=== PATIENT | male | born 1975 | race Caucasian/White ===

== ENCOUNTER 2020-05-23 08:40 | Outpatient (CLI) | payer OTHER, SELFPAY ==
[2020-05-23 09:33] LABS: Basophils Percent Auto 0.5 % (0.2-1.2); Eosinophils Absolute Auto 0.1 K/mm3 (0-0.3); Eosinophils Percent Auto 1.7 % (0-4.4); Hematocrit 45.3 % (42.0-52.0); Hemoglobin 15.3 g/dL (14.0-18.0); Immature Granulocyte Absolute 0.02 K/mm3 (0.00-0.031); Immature Granulocyte Percent A 0.5 % (0-0.5); Lymphocytes Absolute Auto 1.58 K/mm3 (0.9-3.2); Lymphocytes Percent Auto 37.9 % (18.3-44.2); Mean Corpuscular HGB Conc 33.8 g/dl (32-36); Mean Platelet Volume 9.3 fl (7.4-10.4); Monocytes Absolute Auto 0.3 K/mm3 (0.1-0.6); Monocytes Percent Auto 6.5 % (2.6-8.5); Neutrophils Absolute Auto 2.2 K/mm3 (1.3-6.7); Neutrophils Percent Auto 52.9 % (45.5-73.1); Platelet Count Result 165 k/mm3 (150-375); Red Blood Count 5.27 M/mm3 (4.6-6.20); Red Cell Distribution Width 13.1 % (11.5-14.5); White Blood Count 4.2 K/mm3 (4.5-10.0)
[2020-05-23 09:37] LABS: Add Urine Microscopic? NO; Appearance Urine Clear (Clear); Bilirubin Urine Negative (Negative); Blood Urine Negative (Negative); Color Urine Straw (Yellow); Glucose Urine UA Negative (Negative); Ketones Urine Negative (Negative); Leukocyte Esterase Ur Negative LEU/UL (Negative); Nitrate Urine Negative (Negative); Protein Urine Negative (Negative); Specific Grav Ur 1.008 (1.001-1.035); Urobilinogen Urine Negative mg/dL (<2.0)
[2020-05-23 09:42] LABS: Hemoglobin A1C 7.5 % (<5.7)
[2020-05-23 09:45] LABS: Cholesterol 173 mg/dL (0-200); HDL Direct 39 mg/dL; Triglycerides 191 mg/dL (<150)
[2020-05-23 09:48] LABS: Alanine Aminotransferase 53 U/L (4-50); Albumin Level 4.6 g/dL (3.5-5.1); Alkaline Phosphatase 71 U/L (38-126); Anion Gap 8 mmol/L (8-16); Aspartate Amino Transferase 41 U/L (17-59); Bilirubin,Total 0.6 mg/dL (0.2-1.3); Blood Urea Nitrogen 16 mg/dL (9-20); Calcium 9.3 mg/dL (8.4-10.2); Carbon Dioxide 28 mmol/L (22-30); Chloride 102 mmol/L (98-107); Estimated Glomerular Filt Rate > 60; Glucose 132 mg/dL (75-110); Potassium 4.3 mmol/L (3.4-5.0); Sodium 138 mmol/L (137-145); Uric Acid 5.7 mg/dL (3.5-8.5)
[2020-05-23 09:59] LABS: LDL Cholesterol Direct 88 mg/dL
[2020-05-23 09:59] LABS: Creatinine Urine 60.5 mg/dL
[2020-05-23 10:13] LABS: MALB Creatinine Ratio < 9.9 mg/g (0-30); Microalbumin Urine Random < 6.0 mg/L (0-16.7)
[2020-05-23 10:16] LABS: Vitamin D 25 Hydroxy 36.3 ng/mL
[2020-05-23 10:54] LABS: Folic Acid 11.5 ng/mL (2.76->20)
[2020-05-27 05:18] LABS: Insulin Level Total 13.3 uIU/mL (<=19.6)
[2020-05-27 10:02] LABS: T3 Reverse 19 ng/dL (8-25)
[2020-05-27 13:48] LABS: DHEA-Sulfate 79 mcg/dL (70-495)
[2020-05-28 10:19] LABS: Testosterone Free 56.8 pg/mL (35.0-155.0); Testosterone Total 400 ng/dL (250-1100)
[2020-05-28 22:01] LABS: Triiodothyronine T3 Free 3.7 pg/mL (2.3-4.2)
== END 2020-05-23 08:41 | disposition home or self-care (01) ==
PROVIDERS: PCP Family Medicine; Visit Provider Family Medicine
DX: E78.5 Hyperlipidemia, unspecified (principal); E11.9 Type 2 diabetes mellitus without complications; G47.10 Hypersomnia, unspecified; G47.30 Sleep apnea, unspecified; I10 Essential (primary) hypertension; R63.5 Abnormal weight gain; Z79.899 Other long term (current) drug therapy; N99.89 Other postprocedural complications and disorders of genitourinary system; G25.81 Restless legs syndrome
CPT/HCPCS: 36415; 80053; 80061; 81003; 82043; 82306; 82607; 82627; 82746; 83036; 83525; 84402; 84403; 84439; 84443; 84481; 84482; 84550; 85025

== ENCOUNTER 2020-08-23 15:27 | Emergency (ER) | payer OTHER, SELFPAY ==
[2020-08-23 15:30] VITALS: BP 169/96; PULSE 88; RESP 16; TEMP 36.6; O2SAT 98
[2020-08-23] MEDS: HYDROcodone/acetaminophen (*CRX) 7.5-325 MG TABLET 1 TAB PO (16:45)
[2020-08-23 16:46] VITALS: BP 177/101; PULSE 77; RESP 14; O2SAT 99
[2020-08-23] MEDS: diazePAM (*CRX) 5 MG TABLET PO (16:49)
--- NOTE | 2020-08-23 17:14 | ED.GENADULT ---
HPI - General Adult General Chief complaint: Extremity Problem,Nontraumatic Stated complaint: CHRONIC LBP Time Seen by Provider: 08/23/20 15:56 Source: patient and family Mode of arrival: ambulatory Limitations: no limitations History of Present Illness HPI narrative: Patient is a 45-year-old male who presents with right lower back pain rating down the right lower extremity been present for 2 weeks was seen at an outside facility had x-rays which she states showed degenerative disc disease patient was given Flexeril and anti-inflammatory which she has been taking with no improvement notes that he retweaked his back again since and has had increasing pain patient denies any direct injury or trauma or other complaints when on arrival appears uncomfortable but in no distress Related Data Allergies Allergy/AdvReac Type Severity Reaction Status Date / Time metformin Allergy Intermediate diarrhea, Verified 08/23/20 15:38 vomiting Penicillins Allergy Mild Rash Verified 08/23/20 15:38 Review of Systems Review of Systems: All systems reviewed & are unremarkable except as noted in HPI and below PMFSH Past Medical History Medical History (Updated 08/23/20 @ 17:34 by Julius Zhu PA-C) Essential (primary) hypertension Hyperlipidemia, unspecified Pyloric stenosis Sleep apnea in adult Type 2 diabetes mellitus without complication, without long-term current use of insulin Surgical History Surgical History H/O hernia repair Hx of tonsillectomy S/P operative procedure on wrist Family History Family History Father Hypertension Grandparent Diabetes mellitus Other Acute myocardial infarction Social History Social History Smoking status: Never smoker Second hand tobacco smoke exposure: No Alcohol intake: never Gender identity (if verbalized by the patient): Male Exam Narrative: Exam Narrative: GENERAL: Well-appearing, well-nourished, and in no acute distress. HEAD: Normocephalic, atraumatic. EYES: PERRLA and EOMI. ENT: Nares clear, no rhinorrhea or epistaxis. Mucous membranes moist. CHEST: Clear to auscultation. No respiratory distress. No wheezes rales or rhonchi HEART: Regular rate and rhythm. No murmur heard. EXTREMITIES: Normal range of motion. No edema. Right SI joint tenderness no midline tenderness SKIN: Warm, dry, no rash. NEURO: No focal deficits. Alert and oriented x3. Cranial nerves II through XII grossly intact PSYCH: Normal mood and affect. Course Course Emergency Course: Patient in the room in no distress given medications advised to follow with primary care and the specialist he is planning to follow with felt appropriate for outpatient reevaluation Vital Signs Vital signs: Vital Signs Temperature 97.9 F 08/23/20 15:30 Pulse Rate 88 08/23/20 15:30 Respiratory Rate 16 08/23/20 15:30 Blood Pressure 169/96 H 08/23/20 15:30 Pulse Oximetry 98 08/23/20 15:30 Temperature 97.9 F 08/23/20 15:30 Pulse Rate 77 08/23/20 16:46 Respiratory Rate 14 08/23/20 16:46 Blood Pressure 177/101 H 08/23/20 16:46 Pulse Oximetry 99 08/23/20 16:46 Medical Decision Making MDM Narrative Medical decision making narrative: Patients pain is positional in nature and localized to back without signs of cord compression or cauda equina based on neurological exam, skeletal exam and history. No fever or other significant factors to suggest osteomyelitis or spinal epidural abscess. No symptoms or signs to suggest pain is referred from abdominal or / cardiopulmonary sources. No pulsatile masses noted on exam. Patient ambulates with steady gait and is stable for outpatient management given case findings. Vital Signs Vital Signs: Vital Signs Temperature 97.9 F 08/23/20 15:30 Pulse Rate 88 08/23/20 15:30
[2020-08-23] MEDS: LIDOCAINE 5% PATCH 1 PATCH TRANSDERM (17:29)
[2020-08-23 18:08] VITALS: BP 164/92; PULSE 80; RESP 15; O2SAT 99
== END 2020-08-23 18:10 | disposition home or self-care (01) ==
PROVIDERS: Emergency Provider Emergency Medicine; PCP Family Medicine
DX: M54.5 Low back pain (principal); I10 Essential (primary) hypertension; E78.5 Hyperlipidemia, unspecified; E11.9 Type 2 diabetes mellitus without complications; Z79.4 Long term (current) use of insulin; G47.30 Sleep apnea, unspecified
CPT/HCPCS: 99283; A9270

== ENCOUNTER 2020-09-03 13:25 | Outpatient (CLI) | payer OTHER, SELFPAY ==
--- NOTE | ~2020-09-03 | MR_ITS ---
EXAMINATION: MR lumbar spine wo con DATE: 09/03/2020 14:23 INDICATION: Low back pain. Lumbar radiculopathy. TECHNIQUE: Magnetic resonance imaging (MRI) of the lumbar spine was performed without intravenous con trast. Sequences included sagittal T2-weighted FSE, sagittal T2-weighted FS FSE, sagittal T1-weighted FSE, and axial T2-weighted FSE. COMPARISON: None FINDINGS: There is 5 degrees levocurvature of lumbar spine. Vertebral body heights are normal. There is mildly decreased disc height at L2-L3, L3-L4, and L5-S1 and moderately decreased disc height at L4 -L5. The distal spinal cord signal intensity is normal. The conus medullaris is at L1. The following disc levels are specifically discussed: L1-L2: The disc does not extend beyond the endplate margin. There is mild bilateral facet joint osteo arthritis. There is no neural foraminal stenosis. There is no central canal stenosis. L2-L3: The disc is bulging and has an annular fissure. There is mild bilateral facet joint osteoarthr itis. There is mild right and moderate left neural foraminal stenosis. There is mild central canal st enosis. L3-L4: The disc is bulging and has an annular fissure. There is mild right and moderate left facet lexie int osteoarthritis. There is mild bilateral neural foraminal stenosis. There is mild central canal st enosis. L4-L5: The disc is bulging with superimposed right subarticular extrusion with mass effect on right L 5 nerve root in right lateral recess. There is moderate bilateral facet joint osteoarthritis. There i s moderate bilateral neural foraminal stenosis. There is mild central canal stenosis. L5-S1: The disc is bulging and has an annular fissure. There is mild bilateral facet joint osteoarthr itis. There is mild bilateral neural foraminal stenosis. There is mild central canal stenosis. IMPRESSION: 1. Moderate lumbar spondylosis. Of note, an extrusion at L4-L5 exerts mass effect on right L5 nerve r oot. Reviewed, dictated and finalized at location A. STOCK OPERATOR IMPRESSION: 1. Moderate lumbar spondylosis. Of note, an extrusion at L4-L5 exerts mass effe ct on right L5 nerve root.
== END 2020-09-03 13:26 | disposition home or self-care (01) ==
PROVIDERS: PCP Family Medicine; Visit Provider Family Medicine
DX: M47.27 Other spondylosis with radiculopathy, lumbosacral region (principal); M48.07 Spinal stenosis, lumbosacral region
CPT/HCPCS: 72148

== ENCOUNTER 2020-09-08 08:52 | Outpatient (CLI) | payer OTHER, SELFPAY ==
[2020-09-08 17:14] LABS: Basophils Percent Auto 0.5 % (0.2-1.2); Eosinophils Absolute Auto 0.1 K/mm3 (0-0.3); Eosinophils Percent Auto 1.6 % (0-4.4); Hematocrit 45.4 % (42.0-52.0); Hemoglobin 14.6 g/dL (14.0-18.0); Immature Granulocyte Absolute 0.01 K/mm3 (0.00-0.031); Immature Granulocyte Percent A 0.2 % (0-0.5); Lymphocytes Absolute Auto 1.63 K/mm3 (0.9-3.2); Lymphocytes Percent Auto 36.9 % (18.3-44.2); Mean Corpuscular HGB Conc 32.2 g/dl (32-36); Mean Corpuscular Volume 90.3 fl (80-100); Monocytes Absolute Auto 0.3 K/mm3 (0.1-0.6); Monocytes Percent Auto 6.1 % (2.6-8.5); Neutrophils Absolute Auto 2.4 K/mm3 (1.3-6.7); Neutrophils Percent Auto 54.7 % (45.5-73.1); Platelet Count Result 177 k/mm3 (150-375); Red Blood Count 5.03 M/mm3 (4.6-6.20); Red Cell Distribution Width 13.1 % (11.5-14.5); White Blood Count 4.4 K/mm3 (4.5-10.0)
[2020-09-08 17:34] LABS: Alanine Aminotransferase 37 U/L (4-50); Albumin Level 4.2 g/dL (3.5-5.1); Alkaline Phosphatase 66 U/L (38-126); Anion Gap 8 mmol/L (8-16); Aspartate Amino Transferase 30 U/L (17-59); Bilirubin,Total 0.7 mg/dL (0.2-1.3); Blood Urea Nitrogen 24 mg/dL (9-20); Calcium 9.2 mg/dL (8.4-10.2); Carbon Dioxide 27 mmol/L (22-30); Chloride 105 mmol/L (98-107); Cholesterol 138 mg/dL (0-200); Estimated Glomerular Filt Rate > 60; Glucose 100 mg/dL (75-110); HDL Direct 39 mg/dL; Potassium 4.2 mmol/L (3.4-5.0); Sodium 140 mmol/L (137-145); Triglycerides 126 mg/dL (<150)
[2020-09-08 17:45] LABS: LDL Cholesterol Direct 71 mg/dL
[2020-09-08 17:49] LABS: Hemoglobin A1C 5.2 % (<5.7)
[2020-09-11 03:51] LABS: Insulin Level Total 7.7 uIU/mL (<=19.6)
[2020-09-13 14:13] LABS: C-Peptide 1.88 ng/mL (0.80-3.85)
== END 2020-09-08 08:53 | disposition home or self-care (01) ==
LOC: ANHBWCLAB 08:58
PROVIDERS: PCP Family Medicine; Visit Provider Family Medicine
DX: E78.5 Hyperlipidemia, unspecified (principal); Z51.81 Encounter for therapeutic drug level monitoring; E11.9 Type 2 diabetes mellitus without complications; Z79.899 Other long term (current) drug therapy; I10 Essential (primary) hypertension; R89.9 Unspecified abnormal finding in specimens from other organs, systems and tissues; Z00.00 Encounter for general adult medical examination without abnormal findings
CPT/HCPCS: 36415; 80053; 80061; 83036; 83525; 84681; 85025

== ENCOUNTER 2020-11-24 13:33 | Outpatient (CLI) | payer OTHER, SELFPAY ==
--- NOTE | ~2020-11-24 | XR_ITS ---
XR chest 2V DATE: 11/24/2020 13:56 INDICATION: Shortness of breath. History of hypertension. TECHNIQUE: PA and lateral views COMPARISON: 10/01/2018 two-view chest FINDINGS: Normal heart size. No hilar or mediastinal enlargement. No pulmonary infiltrate or consolid ation, pleural effusion or pulmonary vascular congestion or pneumothorax. Minimal dextroscoliosis of the thoracic spine. IMPRESSION: No active cardiopulmonary disease Reviewed, dictated and finalized at location B. TAL PHOTOGRAPHER
--- NOTE | 2020-11-27 12:59 | WPDPFTINT ---
PFT Interpretation This is a pulmonary function test with pre and post-bronchodilator spirometry, plethysmography and diffusing capacity. The test was performed and results interpreted in accordance with the 2019 and 2005 ATS/ERS Task Force guidelines respectively using the Serge/Polchika reference equations. Findings: Spirometry: The Contour of the inspiratory and expiratory flow tracing are normal. The pre bronchodilator FVC is 3.69 L, 73% predicted. The pre bronchodilator FEV1 is 3.01 L, 79% predicted. The FEV1: FVC ratio was 82%. The post bronchodilator FVC is 3.83 L, representing a 4% increase. The post bronchodilator FEV1 is 3.11 L, representing a 3% increase. Plethysmography: The total lung capacity is 5.36 L, 77% predicted. The functional residual capacity is 2.08 L, 62% predicted. The residual volume is 1.63 L, 78% predicted. Diffusing capacity: The absolute diffusion capacity is 26.5, 87% predicted. The diffusing capacity corrected for alveolar volume is 5.61, 131% predicted. In comparison to previous study on 10/01/2018 in which the patient had spirometry without any bronchodilator the FVC is unchanged from 3.78 L to 3.69 L. The FEV1 is unchanged from 3.03 L to 3.01 L. The total lung capacity is he the unchanged from 5.82 L to 5.36 L. The functional residual capacity is decreased from 3.01 L to 2.08 L. The residual volume is decreased from 2.04 L to 1.63 L. The absolute diffusing capacity is unchanged from 27.4 to 26.5. The diffusing capacity corrected for alveolar volume is unchanged from 5.69 to 5.61. Impression: There is a mild restrictive ventilatory abnormality with a normal FEV1. The spirometry is normal without evidence of an obstructive abnormality. There is no significant improvement after inhaling a single dose of albuterol. The diffusing capacity is normal. When compared to previous pulmonary function testing on 10/01/2018 there has been a greater than anticipated time dependent decrease in functional residual capacity and residual volume with an unchanged total lung capacity. Clinical correlation is recommended. There are no prior studies for comparison
== END 2020-11-24 13:34 | disposition home or self-care (01) ==
PROVIDERS: PCP Family Medicine; Visit Provider Internal Medicine Critical Care Medicine
DX: R06.02 Shortness of breath (principal)
CPT/HCPCS: 71046; 94060; 94726; 94729

== ENCOUNTER 2021-03-23 09:35 | Outpatient (CLI) | payer OTHER, SELFPAY ==
--- NOTE | 2021-04-23 09:56 | WPDHOMESLEEP ---
Sleep Study - Home Unattended Date of Study: 03/23/21 Ordering Provider: Kailey Ewing MD Interpreting Provider: Kailey Ewing MD Home Sleep Study Type: Luis M MIJARES Height: 1.78 m Weight: 99.79 kg Body Mass Index: 31.5 Neck Circumference (inches): 17.50 [place]: 8 Reason for Sleep Study Waking during sleep, nonrestorative sleep Prior Home Sleep Test 06/09/2019 with an AHI of 6.1, lowest saturation 80%, treated with a tonsillectomy however he remains sleepy in the day. Sleep History Vadim Cruz is a 45 year old man with a long history of waking up feeling tired and multiple awakenings at night. He had his tonsils removed in 2019 after a home sleep test showed mild [place] with an AHI 6.1 and desaturation to 80%. His snoring improved, yet he remains sleepy in the day. He does not wake up from sleep feeling short of breath. He does not wake at night with heartburn, belching or coughing. He rarely snores. He does not snore loudly enough that others complain about it. He constantly has trouble sleep with a cold. He does not wake up gasping for breath at night. He frequently has breathing problems at night observed by others. Others telling that he stops breathing. He does not sweat excessively at night and he does not notice his heart pounding irregularly night. He occasionally falls asleep during the day. He does not fall asleep while driving. He does not have loss of muscle tone was strong emotion. He occasionally has daytime difficulties due to excessive sleepiness. He does not feel paralyzed when waking or falling asleep. He does not have vivid dreamlike scenes upon awakening or falling asleep. He does not feel afraid to go to sleep. He denies having nightmares, does not have dream recall. He does not have racing thoughts, feelings of sadness depression or anxiety. He does not have muscular tension. He constantly notices parts of his body jerking. He does not kick during the night or have crawling or aching feelings in his legs. He does not have any kind of leg pain at night. He denies morning jaw pain and denies grinding his teeth during sleep. He is not bothered by pain during the day and is not awakened by pain at night. He occasionally wakes up feeling stiff in the morning with sore achy muscles and pain in the neck and spine. He has fatigue. Normal bedtime varies as he works nights. He does not take much time to fall asleep. He typically wakes 3 or 4 times while sleeping night for unclear reasons. He is now off work with an injury. He remains sleepy in the day. He normally works nights, going to work at 11:00 pm, leaving at 7:30 am, going to bed at 10 am and sleeping until 5:00 pm. His sleep is mildly restless. He does not have dreams, does not wake up feeling refreshed. He does not snore. He sometimes wakes with a dry mouth. He has been off work since August for his back problems. Now that he is not working at night, bedtime is 10:00 pm, with 5 hours of restless sleep at night, and perhaps able to get more sleep some nights. He wakes feeling non-refreshed. His sleep quality is similar to when he worked at night. He does not take naps. He wakes in the morning at 9:40 a.m.. On the weekends he wakes at 9:00 a.m.. He gets about 5 hours of sleep at night. He works midnights. His sleep schedule varies depending on if he is working at night or if he is off work. He sometimes takes naps. A short nap is not refreshing. He is usually drowsy for 3 hours after waking. He feels better in the morning compared other times of day Habits: never smoked tobacco. Caffeine 2-3 servings a day. No alcohol or recreational drugs. [facility] Past Medical History Medical History Essential (primary) hypertension Hyperlipidemia, unspecified Obstructive sleep apnea Pyloric stenosis Sleep apnea in adult Type 2 diabetes mellitus without complication, without long-term current use of insulin [place]
[2021-04-23 10:29] VITALS: BMI 31.5
== END 2021-03-26 12:15 | disposition home or self-care (01) ==
LOC: ANHCSM 09:36
PROVIDERS: PCP Family Medicine; Visit Provider Internal Medicine Critical Care Medicine
DX: G47.33 Obstructive sleep apnea (adult) (pediatric) (principal); G47.10 Hypersomnia, unspecified; Z68.31 Body mass index [BMI] 31.0-31.9, adult
CPT/HCPCS: 95800

== ENCOUNTER 2021-05-21 08:41 | Outpatient (CLI) | payer OTHER, SELFPAY ==
[2021-05-21 19:52] LABS: Basophils Percent Auto 0.3 % (0.2-1.2); Eosinophils Absolute Auto 0.1 K/mm3 (0-0.3); Eosinophils Percent Auto 2.3 % (0-4.4); Hematocrit 44.5 % (42.0-52.0); Hemoglobin 14.5 g/dL (14.0-18.0); Immature Granulocyte Absolute 0.02 K/mm3 (0.00-0.031); Immature Granulocyte Percent A 0.5 % (0-0.5); Lymphocytes Absolute Auto 1.65 K/mm3 (0.9-3.2); Lymphocytes Percent Auto 41.3 % (18.3-44.2); Mean Corpuscular HGB Conc 32.6 g/dl (32-36); Mean Corpuscular Hemoglobin 28.4 pg (26-34); Mean Corpuscular Volume 87.1 fl (80-100); Mean Platelet Volume 10.3 fl (7.4-10.4); Monocytes Absolute Auto 0.3 K/mm3 (0.1-0.6); Neutrophils Percent Auto 48.6 % (45.5-73.1); Platelet Count Result 174 k/mm3 (150-375); Red Blood Count 5.11 M/mm3 (4.6-6.20); Red Cell Distribution Width 13.8 % (11.5-14.5)
[2021-05-21 20:18] LABS: Alanine Aminotransferase 24 U/L (4-50); Albumin Level 4.6 g/dL (3.5-5.1); Alkaline Phosphatase 70 U/L (38-126); Anion Gap 6 mmol/L (8-16); Aspartate Amino Transferase 27 U/L (17-59); Bilirubin,Total 0.5 mg/dL (0.2-1.3); Blood Urea Nitrogen 21 mg/dL (9-20); Calcium 9.2 mg/dL (8.4-10.2); Carbon Dioxide 29 mmol/L (22-30); Chloride 101 mmol/L (98-107); Cholesterol 169 mg/dL (0-200); Estimated Glomerular Filt Rate > 60; Glucose 127 mg/dL (65-110); HDL Direct 43 mg/dL; Potassium 4.3 mmol/L (3.4-5.0); Sodium 136 mmol/L (137-145); Triglycerides 155 mg/dL (<150)
[2021-05-21 20:27] LABS: Hemoglobin A1C 5.6 % (<5.7)
[2021-05-21 20:30] LABS: LDL Cholesterol Direct 80 mg/dL
[2021-05-24 04:27] LABS: C-Peptide 1.79 ng/mL (0.80-3.85)
== END 2021-05-21 08:42 | disposition home or self-care (01) ==
LOC: ANHBWCLAB 08:43
PROVIDERS: PCP Family Medicine; Visit Provider Family Medicine
DX: Z00.00 Encounter for general adult medical examination without abnormal findings (principal); E11.9 Type 2 diabetes mellitus without complications; E66.9 Obesity, unspecified; E78.5 Hyperlipidemia, unspecified; Z82.62 Family history of osteoporosis; Z79.899 Other long term (current) drug therapy
CPT/HCPCS: 36415; 80053; 80061; 83036; 84443; 84681; 85025

== ENCOUNTER 2021-09-20 10:43 | Outpatient (CLI) | payer OTHER, SELFPAY ==
[2021-09-24 15:11] LABS: Lead, Blood 1 mcg/dL (<5)
[2021-09-26 15:56] LABS: Collection Sample Venous
== END 2021-09-20 10:44 | disposition home or self-care (01) ==
LOC: ANHBWCLAB 10:44
PROVIDERS: PCP Family Medicine; Visit Provider Family Medicine
DX: Z77.011 Contact with and (suspected) exposure to lead (principal)
CPT/HCPCS: 36415; 83655

== ENCOUNTER → 2021-09-24 03:25 | Outpatient (CLI) | payer OTHER, SELFPAY ==
[2021-09-24 20:37] LABS: SARS-CoV-2 RNA PCR Negative (Negative)
== END ==
PROVIDERS: PCP Family Medicine; Visit Provider Internal Medicine Critical Care Medicine
DX: Z01.812 Encounter for preprocedural laboratory examination (principal); Z20.822 Contact with and (suspected) exposure to COVID-19
CPT/HCPCS: C9803; U0003; U0005

== ENCOUNTER 2021-09-25 07:51 | Outpatient (CLI) | payer OTHER, SELFPAY ==
--- NOTE | 2021-10-09 13:01 | WPDSLEEPSTUD ---
Sleep Study Date of Study: 09/25/21 <Rebecca Johnson DO - Last Filed: 10/09/21 13:21> Ordering Provider: Kailey Ewing MD <Rebecca Johnson DO - Last Filed: 10/09/21 13:21> Interpreting Physician: Rebecca Johnson DO <Rebecca Johnson DO - Last Filed: 10/09/21 13:21> Sleep Study Type: Polysomnogram <Rebecca Johnson DO - Last Filed: 10/09/21 13:21> Height: 1.78 m <Rebecca Johnson DO - Last Filed: 10/09/21 13:21> Weight: 99.79 kg <Rebecca Johnson DO - Last Filed: 10/09/21 13:21> Body Mass Index: 31.5 <Rebecca Johnson DO - Last Filed: 10/09/21 13:21> Neck Circumference (inches): 17 <Rebecca Johnson DO - Last Filed: 10/09/21 13:21> [place]: 4 <Rebecca Johnson DO - Last Filed: 10/09/21 13:21> Reason for Sleep Study The patient had a home sleep test on June 09, 2019 that showed an AHI of 6.1. He ended up having a tonsillectomy. He then had a repeat home sleep test on March 23, 2021 that showed an AHI of 4.3 due to residual hypersomnia. <Rebecca Johnson DO - Last Filed: 10/09/21 13:21> Sleep History Vadim Cruz is a 45 year old man with a long history of waking up feeling tired and multiple awakenings at night. He had his tonsils removed in 2018 after a home sleep test showed mild [place] with an AHI 6.1 and desaturation to 80%. His snoring improved, yet he remains sleepy in the day. He does not wake up from sleep feeling short of breath. He does not wake at night with heartburn, belching or coughing. He rarely snores. He does not snore loudly enough that others complain about it. He constantly has trouble sleep with a cold. He does not wake up gasping for breath at night. He frequently has breathing problems at night observed by others. Others telling that he stops breathing. He does not sweat excessively at night and he does not notice his heart pounding irregularly night. He occasionally falls asleep during the day. He does not fall asleep while driving. He does not have loss of muscle tone was strong emotion. He occasionally has daytime difficulties due to excessive sleepiness. He does not feel paralyzed when waking or falling asleep. He does not have vivid dreamlike scenes upon awakening or falling asleep. He does not feel afraid to go to sleep. He denies having nightmares, does not have dream recall. He does not have racing thoughts, feelings of sadness depression or anxiety. He does not have muscular tension. He constantly notices parts of his body jerking. He does not kick during the night or have crawling or aching feelings in his legs. He does not have any kind of leg pain at night. He denies morning jaw pain and denies grinding his teeth during sleep. He is not bothered by pain during the day and is not awakened by pain at night. He occasionally wakes up feeling stiff in the morning with sore achy muscles and pain in the neck and spine. He has fatigue. Normal bedtime varies as he works nights. He does not take much time to fall asleep. He typically wakes 3 or 4 times while sleeping night for unclear reasons. He is now off work with an injury. He remains sleepy in the day. He normally works nights, going to work at 11:00 pm, leaving at 7:30 am, going to bed at 10 am and sleeping until 5:00 pm. His sleep is mildly restless. He does not have dreams, does not wake up feeling refreshed. He does not snore. He sometimes wakes with a dry mouth. He has been off work since August for his back problems. Now that he is not working at night, bedtime is 10:00 pm, with 5 hours of restless sleep at night, and perhaps able to get more sleep some nights. He wakes feeling non-refreshed. His sleep quality is similar to when he worked at night. He does not take naps. He wakes in the morning at 9:40 a.m.. On the weekends he wakes at 9:00 a.m.. He gets about 5 hours of sleep at night. He works midnights. His sleep schedul
[2021-10-09 13:05] VITALS: BMI 31.5
== END 2021-09-26 06:40 | disposition home or self-care (01) ==
LOC: ANHCSM 07:52
PROVIDERS: PCP Family Medicine; Visit Provider Internal Medicine Critical Care Medicine
DX: G47.33 Obstructive sleep apnea (adult) (pediatric) (principal)
CPT/HCPCS: 95810

== ENCOUNTER 2021-11-01 08:34 | Outpatient (CLI) | payer OTHER, SELFPAY ==
[2021-11-01 19:26] LABS: Basophils Percent Auto 0.3 % (0.2-1.2); Eosinophils Absolute Auto 0.1 K/mm3 (0-0.3); Hematocrit 44.6 % (42.0-52.0); Hemoglobin 14.3 g/dL (14.0-18.0); Immature Granulocyte Absolute 0.01 K/mm3 (0.00-0.031); Immature Granulocyte Percent A 0.3 % (0-0.5); Lymphocytes Absolute Auto 1.38 K/mm3 (0.9-3.2); Lymphocytes Percent Auto 35.1 % (18.3-44.2); Mean Corpuscular HGB Conc 32.1 g/dl (32-36); Mean Corpuscular Hemoglobin 29.2 pg (26-34); Mean Platelet Volume 10.3 fl (7.4-10.4); Monocytes Absolute Auto 0.3 K/mm3 (0.1-0.6); Monocytes Percent Auto 7.1 % (2.6-8.5); Neutrophils Absolute Auto 2.2 K/mm3 (1.3-6.7); Neutrophils Percent Auto 55.2 % (45.5-73.1); Platelet Count Result 175 k/mm3 (150-375); Red Cell Distribution Width 14.3 % (11.5-14.5); White Blood Count 3.9 K/mm3 (4.5-10.0)
[2021-11-01 21:54] LABS: Creatinine Urine 57.1 mg/dL
[2021-11-01 22:03] LABS: MALB Creatinine Ratio < 10.5 mg/g (0-30); Microalbumin Urine Random < 6.0 mg/L (0-16.7)
[2021-11-01 22:05] LABS: Alanine Aminotransferase 30 U/L (4-50); Albumin Level 4.6 g/dL (3.5-5.1); Alkaline Phosphatase 71 U/L (38-126); Anion Gap 9 mmol/L (8-16); Aspartate Amino Transferase 28 U/L (17-59); Bilirubin,Total 0.5 mg/dL (0.2-1.3); Blood Urea Nitrogen 24 mg/dL (9-20); Calcium 9.5 mg/dL (8.4-10.2); Carbon Dioxide 27 mmol/L (22-30); Chloride 102 mmol/L (98-107); Estimated Glomerular Filt Rate > 60; Glucose 108 mg/dL (65-110); Potassium 4.4 mmol/L (3.4-5.0); Sodium 138 mmol/L (137-145)
[2021-11-01 22:18] LABS: Cholesterol 166 mg/dL (0-200); HDL Direct 42 mg/dL; Triglycerides 121 mg/dL (<150)
[2021-11-01 22:21] LABS: Hemoglobin A1C 5.8 % (<5.7)
[2021-11-01 22:29] LABS: LDL Cholesterol Direct 87 mg/dL
== END 2021-11-01 08:35 | disposition home or self-care (01) ==
LOC: ANHBWCLAB 08:36
PROVIDERS: PCP Family Medicine; Visit Provider Family Medicine
DX: E66.9 Obesity, unspecified (principal); E11.9 Type 2 diabetes mellitus without complications; E78.5 Hyperlipidemia, unspecified; I10 Essential (primary) hypertension
CPT/HCPCS: 36415; 80053; 80061; 82043; 83036; 85025

== ENCOUNTER 2021-11-09 07:56 | Outpatient (CLI) | payer OTHER, SELFPAY ==
[2021-11-09 19:28] LABS: Folic Acid 8.5 ng/mL (2.76->20)
== END 2021-11-09 07:57 | disposition home or self-care (01) ==
LOC: ANHBWCLAB 07:58
PROVIDERS: PCP Family Medicine; Visit Provider Family Medicine
DX: D70.9 Neutropenia, unspecified (principal)
CPT/HCPCS: 36415; 82607; 82746

== ENCOUNTER 2021-11-13 16:03 | Outpatient (CLI) | payer OTHER, SELFPAY | END 2021-11-13 16:04 | disposition home or self-care (01) | LOC: ANHBWCLAB 16:05 | PROVIDERS: PCP Family Medicine; Visit Provider Family Medicine | DX: D70.9 Neutropenia, unspecified (principal) | CPT/HCPCS: 36415; 82525 ==

== ENCOUNTER 2021-12-05 08:13 | Outpatient (CLI) | payer OTHER, SELFPAY ==
[2021-12-05 18:56] LABS: Basophils Percent Auto 0.3 % (0.2-1.2); Eosinophils Absolute Auto 0.1 K/mm3 (0-0.3); Eosinophils Percent Auto 1.5 % (0-4.4); Hemoglobin 14.1 g/dL (14.0-18.0); Immature Granulocyte Absolute 0.02 K/mm3 (0.00-0.031); Immature Granulocyte Percent A 0.5 % (0-0.5); Lymphocytes Absolute Auto 1.49 K/mm3 (0.9-3.2); Mean Corpuscular HGB Conc 31.3 g/dl (32-36); Mean Corpuscular Volume 92.6 fl (80-100); Mean Platelet Volume 10.3 fl (7.4-10.4); Monocytes Absolute Auto 0.3 K/mm3 (0.1-0.6); Monocytes Percent Auto 6.9 % (2.6-8.5); Neutrophils Absolute Auto 2.1 K/mm3 (1.3-6.7); Neutrophils Percent Auto 52.8 % (45.5-73.1); Platelet Count Result 187 k/mm3 (150-375); Red Blood Count 4.86 M/mm3 (4.6-6.20); Red Cell Distribution Width 14.4 % (11.5-14.5); White Blood Count 3.9 K/mm3 (4.5-10.0)
[2021-12-05 19:04] LABS: Alanine Aminotransferase 24 U/L (4-50); Albumin Level 4.6 g/dL (3.5-5.1); Alkaline Phosphatase 69 U/L (38-126); Anion Gap 9 mmol/L (8-16); Aspartate Amino Transferase 28 U/L (17-59); Bilirubin,Total 0.6 mg/dL (0.2-1.3); Blood Urea Nitrogen 23 mg/dL (9-20); Calcium 9.2 mg/dL (8.4-10.2); Carbon Dioxide 24 mmol/L (22-30); Chloride 107 mmol/L (98-107); Estimated Glomerular Filt Rate > 60; Glucose 131 mg/dL (65-110); Lactate Dehydrogenase 443 U/L (313-618); Potassium 4.4 mmol/L (3.4-5.0); Sodium 140 mmol/L (137-145)
[2021-12-05 20:09] LABS: Folic Acid 7.5 ng/mL (2.76->20)
[2021-12-07 10:38] LABS: ANA Cascade Screen Negative (Negative)
[2021-12-08 15:24] LABS: Methylmalonic Acid 184 nmol/L (87-318)
== END 2021-12-05 08:14 | disposition home or self-care (01) ==
PROVIDERS: PCP Family Medicine; Visit Provider Internal Medicine Hematology & Oncology
DX: D72.819 Decreased white blood cell count, unspecified (principal); D64.9 Anemia, unspecified
CPT/HCPCS: 36415; 80053; 82607; 82728; 82746; 83615; 83921; 85025; 86038

== ENCOUNTER 2021-12-05 09:46 | Outpatient (CLI) | payer OTHER, SELFPAY ==
--- NOTE | ~2021-12-05 | US_ITS ---
US abdomen complete EXAMINATION: US Abdomen Complete INDICATION: Leukopenia. PROCEDURE: Realtime High Resolution abdomen ultrasound. COMPARISON: No prior studies for comparison FINDINGS: Gallbladder within normal limits. No gallstones, pericholecystic fluid, gallbladder wall t hickening or biliary dilatation. Common bile duct measures 5.7 mm. Liver echotexture within normal limits without focal mass. Pancreas not adequately visualized.. Dumont creatic tail is obscured by bowel gas. Spleen is mildly enlarged measuring 13 cm. Renal echotexture is within normal limits bilaterally without hydronephrosis, contour deforming mass or renal stone. Ri ght kidney measures 11.7 cm. Left kidney measures 11.2 cm. Visualized aspects of the aorta and IVC are within normal limits. Portal vein is patent. No sonograph ic White's sign indicated by the technologist. IMPRESSION: 1: Splenomegaly. Reviewed, dictated and finalized at location A. NG MACHINE SET UP OPERATOR JIG IMPRESSION: 1: Splenomegaly.
== END 2021-12-05 09:47 | disposition home or self-care (01) ==
LOC: ANHIMG 09:51
PROVIDERS: PCP Family Medicine; Visit Provider Internal Medicine Hematology & Oncology
DX: D72.819 Decreased white blood cell count, unspecified (principal); R16.1 Splenomegaly, not elsewhere classified
CPT/HCPCS: 36415; 76700; 80053; 82607; 82728; 82746; 83615; 83921; 85025; 86038

== ENCOUNTER 2022-05-27 08:31 | Outpatient (CLI) | payer OTHER, SELFPAY ==
[2022-05-27 19:44] LABS: Basophils Percent Auto 0.3 % (0.2-1.2); Eosinophils Absolute Auto 0.1 K/mm3 (0-0.3); Eosinophils Percent Auto 2.6 % (0-4.4); Hematocrit 47.7 % (42.0-52.0); Hemoglobin 15.1 g/dL (14.0-18.0); Immature Granulocyte Absolute 0.01 K/mm3 (0.00-0.031); Immature Granulocyte Percent A 0.3 % (0-0.5); Lymphocytes Absolute Auto 1.41 K/mm3 (0.9-3.2); Mean Corpuscular HGB Conc 31.7 g/dl (32-36); Mean Corpuscular Hemoglobin 29.4 pg (26-34); Mean Platelet Volume 10.3 fl (7.4-10.4); Monocytes Absolute Auto 0.3 K/mm3 (0.1-0.6); Monocytes Percent Auto 7.9 % (2.6-8.5); Neutrophils Percent Auto 51.9 % (45.5-73.1); Platelet Count Result 175 k/mm3 (150-375); Red Blood Count 5.13 M/mm3 (4.6-6.20); Red Cell Distribution Width 13.8 % (11.5-14.5); White Blood Count 3.8 K/mm3 (4.5-10.0)
[2022-05-27 20:18] LABS: Alanine Aminotransferase 30 U/L (6-50); Albumin Level 4.6 g/dL (3.5-5.1); Alkaline Phosphatase 71 U/L (38-126); Anion Gap 11 mmol/L (8-16); Aspartate Amino Transferase 55 U/L (17-59); Bilirubin,Total 0.5 mg/dL (0.2-1.3); Blood Urea Nitrogen 21 mg/dL (9-20); Calcium 9.4 mg/dL (8.4-10.2); Carbon Dioxide 27 mmol/L (22-30); Chloride 101 mmol/L (98-107); Estimated Glomerular Filt Rate > 60; Glucose 129 mg/dL (65-110); Potassium 4.2 mmol/L (3.4-5.0); Sodium 139 mmol/L (137-145)
== END 2022-05-27 08:32 | disposition home or self-care (01) ==
PROVIDERS: PCP Family Medicine; Visit Provider Internal Medicine Hematology & Oncology
DX: D72.819 Decreased white blood cell count, unspecified (principal)
CPT/HCPCS: 36415; 80053; 85025

== ENCOUNTER 2022-08-12 11:32 | Outpatient (CLI) | payer OTHER, SELFPAY ==
[2022-08-12 18:58] LABS: Hemoglobin A1C 5.9 % (<5.7)
[2022-08-12 19:28] LABS: Creatinine Urine 63.4 mg/dL
[2022-08-12 20:04] LABS: MALB Creatinine Ratio < 9.5 mg/g (0-30); Microalbumin Urine Random < 6.0 mg/L (0-16.7)
== END 2022-08-12 11:33 | disposition home or self-care (01) ==
LOC: ANHBWCLAB 11:32
PROVIDERS: PCP Family Medicine; Visit Provider Family Medicine
DX: E11.9 Type 2 diabetes mellitus without complications (principal)
CPT/HCPCS: 36415; 82043; 83036

== ENCOUNTER 2022-12-26 11:26 | Outpatient (CLI) | payer OTHER, SELFPAY ==
--- NOTE | ~2022-12-26 | XR_ITS ---
EXAMINATION: XR abdomen obstructive series DATE: 12/26/2022 11:41 INDICATION: Diarrhea, unspecified TECHNIQUE: Upright and supine views of the abdomen were obtained. COMPARISON: None. FINDINGS: The bowel gas pattern is normal. No dilated loops of bowel are evident. The visualized lung bases are clear. There are phleboliths of the pelvis. There is mild spondylosis of the lumbar spine. IMPRESSION: 1. No radiographic correlate for the patient's symptoms. Reviewed, dictated and finalized at location L.
[2022-12-26 18:52] LABS: Alanine Aminotransferase 29 U/L (6-50); Alkaline Phosphatase 77 U/L (38-126); Anion Gap 7 mmol/L (8-16); Aspartate Amino Transferase 55 U/L (17-59); Bilirubin,Total 0.8 mg/dL (0.2-1.3); Blood Urea Nitrogen 21 mg/dL (9-20); Calcium 9.4 mg/dL (8.4-10.2); Carbon Dioxide 29 mmol/L (22-30); Chloride 104 mmol/L (98-107); Estimated Glomerular Filt Rate > 60; Glucose 91 mg/dL (65-110); Potassium 4.2 mmol/L (3.4-5.0); Sodium 140 mmol/L (137-145)
[2022-12-26 19:29] LABS: Basophils Percent Auto 0.4 % (0.2-1.2); Eosinophils Percent Auto 0.7 % (0-4.4); Hematocrit 47.2 % (42.0-52.0); Hemoglobin 15.4 g/dL (14.0-18.0); Immature Granulocyte Absolute 0.02 K/mm3 (0.00-0.031); Immature Granulocyte Percent A 0.4 % (0-0.5); Lymphocytes Absolute Auto 1.51 K/mm3 (0.9-3.2); Mean Corpuscular HGB Conc 32.6 g/dl (32-36); Mean Corpuscular Volume 88.9 fl (80-100); Mean Platelet Volume 10.6 fl (7.4-10.4); Monocytes Absolute Auto 0.3 K/mm3 (0.1-0.6); Neutrophils Absolute Auto 3.5 K/mm3 (1.3-6.7); Neutrophils Percent Auto 65.5 % (45.5-73.1); Platelet Count Result 199 k/mm3 (150-375); Red Blood Count 5.31 M/mm3 (4.6-6.20); Red Cell Distribution Width 13.6 % (11.5-14.5); White Blood Count 5.4 K/mm3 (4.5-10.0)
== END 2022-12-26 11:27 | disposition home or self-care (01) ==
LOC: ANHBWCLAB 11:27
PROVIDERS: PCP Family Medicine; Visit Provider Family Medicine
DX: E11.9 Type 2 diabetes mellitus without complications (principal); K52.9 Noninfective gastroenteritis and colitis, unspecified
CPT/HCPCS: 36415; 74019; 80053; 85025

== ENCOUNTER 2023-02-24 14:19 | Outpatient (CLI) | payer OTHER, SELFPAY ==
--- NOTE | ~2023-02-24 | XR_ITS ---
EXAM: XR elbow RT min 3V DATE: 02/24/2023 14:37 HISTORY: Rt chronic shoulder pain radiating to elbow with movement . COMPARISON: None available. FINDINGS: Normal mineralization. No fracture or dislocation. No lytic or blastic lesion. Joint space s are maintained. No erosion or periosteal change. Soft tissues within normal limits. IMPRESSION: Unremarkable right elbow radiograph findings. Reviewed, dictated and finalized at location K.
--- NOTE | ~2023-02-24 | XR_ITS ---
EXAM: XR shoulder RT min 2V DATE: 02/24/2023 14:38 HISTORY: chronic RT shoulder pain radiating into elbow . COMPARISON: None available. FINDINGS: Normal mineralization. No fracture or dislocation. No lytic or blastic lesion. Joint space s are mild degenerative change at the AC joint and glenohumeral joint. No erosion or periosteal boogie e. Soft tissues within normal limits. IMPRESSION: Mild polyarticular right shoulder osteoarthritis. Reviewed, dictated and finalized at location K.
[2023-02-24 20:17] LABS: Hemoglobin A1C 5.6 % (<5.7)
== END 2023-02-24 14:20 | disposition home or self-care (01) ==
LOC: ANHBWCLAB 14:20
PROVIDERS: PCP Family Medicine; Visit Provider Family Medicine
DX: M25.511 Pain in right shoulder (principal); M25.521 Pain in right elbow; E11.9 Type 2 diabetes mellitus without complications; E66.9 Obesity, unspecified; I10 Essential (primary) hypertension; M19.011 Primary osteoarthritis, right shoulder
CPT/HCPCS: 36415; 73030; 73080; 83036

== ENCOUNTER 2023-03-24 11:12 | Outpatient (CLI) | payer OTHER, SELFPAY ==
[2023-03-24 18:44] LABS: Hematocrit 46.9 % (42.0-52.0); Hemoglobin 15.5 g/dL (14.0-18.0); Mean Corpuscular Volume 87.8 fl (80-100); Platelet Count Result 190 k/mm3 (150-375); Red Blood Count 5.34 M/mm3 (4.6-6.20); Red Cell Distribution Width 13.4 % (11.5-14.5); White Blood Count 5.4 K/mm3 (4.5-10.0)
[2023-03-24 19:21] LABS: Alanine Aminotransferase 33 U/L (6-50); Albumin Level 4.9 g/dL (3.5-5.1); Alkaline Phosphatase 79 U/L (38-126); Amylase 87 U/L (30-110); Anion Gap 7 mmol/L (8-16); Aspartate Amino Transferase 59 U/L (17-59); Bilirubin,Total 0.8 mg/dL (0.2-1.3); Blood Urea Nitrogen 18 mg/dL (9-20); Calcium 9.3 mg/dL (8.4-10.2); Carbon Dioxide 27 mmol/L (22-30); Chloride 104 mmol/L (98-107); Estimated Glomerular Filt Rate > 60; Glucose 92 mg/dL (65-110); Lipase 149 U/L (23-300); Potassium 4.3 mmol/L (3.4-5.0); Sodium 138 mmol/L (137-145)
== END 2023-03-24 11:13 | disposition home or self-care (01) ==
LOC: ANHBWCLAB 11:13
PROVIDERS: PCP Family Medicine; Visit Provider Nurse Practitioner Adult Health
DX: R10.13 Epigastric pain (principal); R11.0 Nausea
CPT/HCPCS: 36415; 80053; 82150; 83690; 85027

== ENCOUNTER 2023-10-14 09:32 | Outpatient (CLI) | payer OTHER, SELFPAY ==
--- NOTE | 2023-10-20 17:01 | WPDHOMESLEEP ---
Sleep Study - Home Unattended Date of Study: 10/14/23 Ordering Provider: Zhao Rivero APRN Interpreting Provider: Rebecca Johnson, DO Home Sleep Study Type: Watch PAT Height: 1.78 m Weight: 83.915 kg Body Mass Index: 26.5 Neck Circumference (inches): 15.5 [place]: 2 Reason for Sleep Study Previous diagnosis of [place]. Currently on PAP. Lost 50-55 lbs. Wants to see if he still has [place] Sleep History The patient is a 48-year-old male with hypertension, hyperlipidemia, diabetes and [place] on CPAP that had a sleep study ordered to see if he still needs PAP therapy. The patient denies awakening from sleep short of breath. He occasionally awakens at night with heartburn, belching or cough. He rarely snores and is never loud enough that others complain. He occasionally has trouble sleeping when he has a cold. He denies waking up gasping for air throughout the night. He rarely has breathing problems at night observed by himself or others. He occasionally sweats excessively at night. He denies having heart palpitations or irregular heartbeats during the night. He denies falling asleep during the day and while driving. He denies sleep paralysis, cataplexy and hypnagogic / hypnopompic hallucinations. He denies having trouble at school or work due to sleepiness. He denies feeling afraid of going to sleep. He denies having nightmares and denies remembering his dreams. He denies having thoughts racing through his mind. He denies feeling sad, depressed or anxious. He denies having muscular tension. He constantly notices parts of his body jerk. He denies kicking during the night. He denies having crawling and aching feelings in his legs and denies having leg pain during the night. He denies grinding his teeth during sleep and denies awakening with morning jaw pain. He is occasionally bothered by pain during the day and occasionally awakened by pain during the night. He denies waking up feeling stiff in the morning. He rarely wakes up with sore or achy muscles. He denies waking up with pain in the neck, spine and other joints. He goes to bed between 9-10 p.m. on both weekdays and weekends. The amount of time it takes for him to fall asleep is variable. He wakes up 2-3 times throughout the night to change positions and is able to fall back asleep relatively quickly. He wakes up at 7:15 a.m. on both weekdays and weekends. He typically gets 7-8 hours of sleep per night. He will stay in bed for 5-10 minutes after waking up in the morning. He currently lives with his and 2 children. He denies consuming any caffeinated beverages within 2 hours of bedtime. He denies engaging in physical exercise before bedtime. He will watch television before falling asleep. He denies taking naps in the afternoon or the evening. He consumes 1-2 caffeinated beverages per day. He denies tobacco, alcohol and recreational drug use. [facility] Past Medical History Medical History Essential (primary) hypertension Hyperlipidemia, unspecified Obstructive sleep apnea Pyloric stenosis Sleep apnea in adult Type 2 diabetes mellitus without complication, without long-term current use of insulin Surgical History Surgical History H/O hernia repair History of back surgery Hx of tonsillectomy S/P operative procedure on wrist Family History Family History Father Hypertension Grandparent Diabetes mellitus Other Acute myocardial infarction Social History Social History Smoking status: Never smoker Second hand tobacco smoke exposure: No Alcohol intake: never Substance use: never Lack of Transportation: No Lack of Food: Never True Current Housing: I Have Housing Concerned About Future Housing: No Difficulty Paying G
[2023-10-20 17:08] VITALS: BMI 26.5
== END 2023-10-15 07:30 | disposition home or self-care (01) ==
LOC: ANHCSM 09:32
PROVIDERS: PCP Family Medicine; Visit Provider Nurse Practitioner Family
DX: G47.33 Obstructive sleep apnea (adult) (pediatric) (principal); R06.83 Snoring
CPT/HCPCS: 95800

== ENCOUNTER 2024-02-16 14:19 | Outpatient (CLI) | payer OTHER, SELFPAY ==
[2024-02-16 19:17] LABS: Hematocrit 44.9 % (42.0-52.0); Hemoglobin 15.2 g/dL (14.0-18.0); Mean Corpuscular HGB Conc 33.9 g/dl (32-36); Mean Corpuscular Hemoglobin 29.9 pg (26-34); Mean Corpuscular Volume 88.2 fl (80-100); Mean Platelet Volume 10.5 fl (7.4-10.4); Platelet Count Result 186 k/mm3 (150-375); Red Blood Count 5.09 M/mm3 (4.6-6.20); Red Cell Distribution Width 12.9 % (11.5-14.5)
[2024-02-16 19:47] LABS: Alanine Aminotransferase 31 U/L (6-50); Albumin Level 4.9 g/dL (3.5-5.1); Alkaline Phosphatase 65 U/L (38-126); Anion Gap 8 mmol/L (4-12); Aspartate Amino Transferase 54 U/L (17-59); Blood Urea Nitrogen 15 mg/dL (9-20); Calcium 9.4 mg/dL (8.4-10.2); Carbon Dioxide 27 mmol/L (22-30); Chloride 105 mmol/L (98-107); Cholesterol 140 mg/dL (0-200); Estimated Glomerular Filt Rate 59; Glucose 98 mg/dL (65-110); HDL Direct 42 mg/dL; Potassium 4.2 mmol/L (3.4-5.0); Sodium 140 mmol/L (137-145); Triglycerides 121 mg/dL (<150)
[2024-02-16 20:01] LABS: LDL Cholesterol Direct 73 mg/dL
[2024-02-16 20:50] LABS: Hemoglobin A1C 5.2 % (<5.7)
== END 2024-02-16 14:20 | disposition home or self-care (01) ==
LOC: ANHBWCLAB 14:20
PROVIDERS: PCP Family Medicine; Visit Provider Family Medicine
DX: E11.9 Type 2 diabetes mellitus without complications (principal); G47.33 Obstructive sleep apnea (adult) (pediatric); E66.9 Obesity, unspecified; E78.5 Hyperlipidemia, unspecified; I10 Essential (primary) hypertension; R06.02 Shortness of breath
CPT/HCPCS: 36415; 80053; 80061; 83036; 85027